=== PATIENT | female | born 1980 | race African-American/Black ===

== ENCOUNTER → 2020-08-16 | Outpatient (CLI) | payer MEDICAID ==
[2015-04-19 10:44] VITALS: BP 116/72
[~2020-08-16] MED LIST: MULT-208 PO
--- NOTE | 2020-08-16 16:19 | KCIC ---
Chest radiograph 08/16/2020 11:34 AM INDICATION: Chronic cough, worse past 2 months COMPARISON: None available TECHNIQUE: Frontal and lateral views of the chest are provided. FINDINGS: The cardiomediastinal silhouette is within normal limits. There are no pleural effusions. There is no pulmonary vascular congestion. There is no pneumothorax. Mild perihilar interstitial changes are identified. No significant osseous abnormality is identified. IMPRESSION: Mild perihilar interstitial changes may represent developing interstitial pneumonitis or bronchitis. Short-term follow-up two-view chest radiograph could be of benefit potential resolution. Electronically signed by: Yvette Joseph MD (08/16/2020 4:17 PM) [id number]
== END ==
LOC: KCIC 11:30
PROVIDERS: ATTEND Nurse Practitioner Gerontology
DX: R05 Cough (principal)
CPT/HCPCS: 71046

== ENCOUNTER → 2021-05-30 | Outpatient (CLI) | payer MEDICAID ==
[2015-04-19 10:44] VITALS: BP 116/72
--- NOTE | 2021-05-30 12:41 | EKG ---
[facility] [address] [place] [address] Test Date: 2021-05-30 Test Time: 12:34:43 Pat Name: ERICK BYRD Department: Room: Gender: F [employer] Intern: RYNE : 1980 Requested By: STAFF NON Order Number: [id number] Reading MD: Sunil Ochoa Measurements Intervals [place] Rate: 69 P: 48 FL: 168 QRS: 27 QRSD: 110 T: 0 QT: 366 QTc: 394 Interpretive Statements SINUS RHYTHM QRS(T) CONTOUR ABNORMALITY CONSISTENT WITH ANTEROSEPTAL INFARCT PROBABLY OLD ABNORMAL ECG RI6.02 No previous ECG available for comparison Electronically Signed On 06-01-2021 8:10:40 SEED CORE OPERATOR by Sunil Ochoa
== END ==
LOC: EKG 11:48
PROVIDERS: ATTEND Plastic Surgery
DX: R94.31 Abnormal electrocardiogram [ECG] [EKG] (principal); Z01.818 Encounter for other preprocedural examination
CPT/HCPCS: 93005